=== PATIENT | female | born 1980 | race Hispanic/Latino ===

== ENCOUNTER 2021-03-10 07:32 | Observation (INO) | payer BC ==
[2021-03-05 11:30] LABS: BASOPHILS % (AUTO) 0.3 % (0.0-5.0); EOSINOPHILS % (AUTO) 0.5 % (0.0-8.0); HEMATOCRIT 42.6 % (36-48); LYMPHOCYTES % (AUTO) 22.1 % (21.0-51.0); MEAN CORPUSCULAR HEMOGLOBIN 29.1 pg (27.0-33.0); MEAN CORPUSCULAR HGB CONC 33.1 g/dL (32.0-36.0); NEUTROPHILS % (AUTO) 72.8 % (40.0-77.0); PLATELET COUNT (AUTO) 290 K/uL (130-400); RED BLOOD CELL COUNT(AUTO) 4.84 MIL/uL (4.00-5.50); RED CELL DISTRIBUTION WIDTH 12.8 % (11.0-15.5); WHITE BLOOD COUNT (AUTO) 8.7 K/uL (4.8-10.8)
[2021-03-05 11:43] LABS: POTASSIUM 3.6 mmol/L (3.5-5.1)
[2021-03-07 10:23] VITALS: BP 156/76
[2021-03-10] VITALS (22 sets, daily range): BP systolic 105–148; BP diastolic 51–75
[~2021-03-10] VITALS: Ht 162.6 cm; Wt 109.8 kg
[~2021-03-10 07:32] MED LIST: AMLO-257 PO; ETON1VAG VG; FISH1CAP50 PO; METF-446 PO; MULT-1367 PO; SEMA1PEN3 SQ
[2021-03-10] MEDS ORDERED: SODIUM CHLORIDE 0.9% 1000ML 1,000 ML IV ONE (07:54)
[2021-03-10] MEDS ORDERED: DEXAMETHASONE SOD PHOSPHATE 10MG/ML 1ML VIAL ONE (10:12)
[2021-03-10] MEDS ORDERED: SUCCINYLCHOLINE 200MG/10ML SYR ONE (10:12)
[2021-03-10] MEDS ORDERED: ROCURONIUM 10MG/1ML SYR 10 MG/ML ML ONE ×2 (10:12→10:50)
[2021-03-10] MEDS ORDERED: MIDAZOLAM HCL 1 MG/ML 2ML VIAL ONE (10:12)
[2021-03-10] MEDS ORDERED: LIDOCAINE PF 100MG/5ML (2%) SYRINGE 5ML ONE (10:12)
[2021-03-10] MEDS ORDERED: ONDANSETRON HCL 4 MG/2 ML VIAL ONE ×2 (10:12→12:48)
[2021-03-10] MEDS ORDERED: PROPOFOL 10 MG/ML 20ML VIAL IV ONE (10:12)
[2021-03-10] MEDS ORDERED: GLYCOPYRROLATE 1 MG/5 ML SYRINGE ONE (10:12)
[2021-03-10] MEDS ORDERED: NEOSTIGMINE 5MG/5ML SYR IV ONE (10:12)
[2021-03-10] MEDS ORDERED: FENTANYL CITRATE PF 50 MCG/1 ML 2ML VIAL ONE ×4 (10:13→11:51)
[2021-03-10] MEDS ORDERED: MEPERIDINE-PF 25 MG/ML SYG ONE ×2 (10:13→12:37)
[2021-03-10] MEDS ORDERED: VASOPRESSIN 20 UNITS/ML 1ML VIAL ONE (10:35)
[2021-03-10] MEDS ORDERED: CEFAZOLIN SODIUM 1 GM VIAL ONE ×2 (10:45→10:46)
[2021-03-10] MEDS ORDERED: ESTROGENS,CONJUGATED 0.625 MG/GM 42.5 GM VAG CRM VG ONE (12:21)
[2021-03-10] MEDS ORDERED: METOCLOPRAMIDE 10 MG/2 ML VIAL ONE (12:48)
[2021-03-10] MEDS ORDERED: ONDANSETRON HCL 4 MG/2 ML VIAL IVP PRN (14:00)
[2021-03-10] MEDS ORDERED: MEPERIDINE-PF 75 MG/ML SYG IM PRN (14:00)
[2021-03-10] MEDS ORDERED: BISACODYL 10 MG SUPP.RECT RC PRN (14:00)
[2021-03-10] MEDS ORDERED: PROMETHAZINE HCL 25 MG/ML 1ML AMPULE IM PRN ×2 (14:00)
[2021-03-10] MEDS: LACTATED RINGERS 1000ML 1,000 ML IV SCH ×2 (14:12→22:42)
[2021-03-10] MEDS: INSULIN HUMULIN R 100 UNIT/ML 3ML SQ SCH ×2 (17:19→21:19)
[2021-03-10] MEDS: ACETAMINOPHEN-CODEINE 300/30MG TAB PO PRN (19:48)
[2021-03-10] MEDS: DOCUSATE SODIUM 100 MG CAP PO PRN (21:21)
[2021-03-10] MEDS: SIMETHICONE 80 MG TAB.CHEW PO PRN (21:21)
[2021-03-11 04:06] VITALS: BP 121/59
[2021-03-11] MEDS: LACTATED RINGERS 1000ML 1,000 ML IV SCH (06:53)
[2021-03-11] MEDS: INSULIN HUMULIN R 100 UNIT/ML 3ML SQ SCH ×2 (06:56→12:09)
[2021-03-11 07:17] VITALS: BP 134/72
[2021-03-11 07:32] LABS: HEMATOCRIT 35.4 % (36-48); MEAN CORPUSCULAR HEMOGLOBIN 28.9 pg (27.0-33.0); MEAN CORPUSCULAR HGB CONC 33.6 g/dL (32.0-36.0); MEAN CORPUSCULAR VOLUME 85.9 fL (79-99); RED BLOOD CELL COUNT(AUTO) 4.12 MIL/uL (4.00-5.50); RED CELL DISTRIBUTION WIDTH 12.4 % (11.0-15.5); WHITE BLOOD COUNT (AUTO) 12.1 K/uL (4.8-10.8)
[2021-03-11] MEDS: SIMETHICONE 80 MG TAB.CHEW PO PRN (08:38)
[2021-03-11] MEDS: DOCUSATE SODIUM 100 MG CAP PO PRN (08:38)
[2021-03-11] MEDS: ACETAMINOPHEN-CODEINE 300/30MG TAB PO PRN (08:39)
[2021-03-11] MEDS ORDERED: AMLODIPINE BESYLATE 5 MG TAB PO SCH (09:00)
[2021-03-11 11:29] VITALS: BP 121/67
[2021-03-11] MEDS ORDERED: IBUPROFEN 800 MG TAB PO SCH ×2 (12:00→14:00)
[2021-03-11 15:44] VITALS: BP 128/68
[2021-03-11] MEDS ORDERED: METFORMIN HCL 500 MG TABLET PO SCH (17:00)
== END 2021-03-11 16:45 | disposition home or self-care (01) ==
LOC: DAH 07:32 → WSH 07:33 → DAH 23:38
PROVIDERS: ADMIT Specialist; ATTEND Specialist
DX: N81.89 Other female genital prolapse (principal); Z20.822 Contact with and (suspected) exposure to COVID-19; N94.10 Unspecified dyspareunia; N39.3 Stress incontinence (female) (male); I10 Essential (primary) hypertension; E11.9 Type 2 diabetes mellitus without complications; Z79.84 Long term (current) use of oral hypoglycemic drugs; Z79.899 Other long term (current) drug therapy; Z88.8 Allergy status to other drugs, medicaments and biological substances
CPT/HCPCS: 36415 ×3; 57240; 58260; 80048; 82948 ×6; 84703; 85025; 85027; 86850 ×2; 86900 ×2; 86901 ×2; 96361 ×2; 96372 ×2; 96374; A4215; A4216; A4221; A4222; A4223 ×3; A4344; A4351; A4510; A4600; A4606; A4663; A4930 ×2; A6260; C1769; C9803; G0378 ×17; J0330; J0690 ×2; J1100; J1815 ×4; J2001; J2175 ×3; J2250; J2405 ×2; J2550; J2704; J2710; J2765; J3010 ×4; J3490 ×2; J7030 ×2; J7120; U0003

== ENCOUNTER 2021-05-05 06:34 | Day surgery (SDC) | payer BC ==
[2021-05-01 10:33] LABS: BASOPHILS % (AUTO) 0.3 % (0.0-5.0); EOSINOPHILS % (AUTO) 1.9 % (0.0-8.0); HEMATOCRIT 42.4 % (36-48); LYMPHOCYTES % (AUTO) 25.6 % (21.0-51.0); MEAN CORPUSCULAR HEMOGLOBIN 28.4 pg (27.0-33.0); MEAN CORPUSCULAR HGB CONC 31.8 g/dL (32.0-36.0); MEAN CORPUSCULAR VOLUME 89.1 fL (79-99); MONOCYTES % (AUTO) 4.7 % (3.0-13.0); NEUTROPHILS % (AUTO) 67.2 % (40.0-77.0); PLATELET COUNT (AUTO) 287 K/uL (130-400); RED BLOOD CELL COUNT(AUTO) 4.76 MIL/uL (4.00-5.50); RED CELL DISTRIBUTION WIDTH 12.6 % (11.0-15.5); WHITE BLOOD COUNT (AUTO) 7.5 K/uL (4.8-10.8)
[2021-05-01 11:11] LABS: CREATININE 0.9 mg/dL (0.5-1.5)
[2021-05-01 11:30] LABS: POTASSIUM 3.9 mmol/L (3.5-5.1)
[2021-05-02 09:59] VITALS: BP 141/76
[2021-05-05] VITALS (17 sets, daily range): BP systolic 113–160; BP diastolic 70–89
[~2021-05-05] VITALS: Ht 166.4 cm; Wt 108.6 kg
[~2021-05-05 06:34] MED LIST changes: -ETON1VAG VG; +VITA1CAP85 PO
[2021-05-05] MEDS ORDERED: 0.9%NACL 1000ML 1,000 ML IV ONE (07:13)
[2021-05-05] MEDS: CEFAZOLIN SODIUM 1 GM VIAL ONE ×2 (08:01→09:28)
[2021-05-05] MEDS ORDERED: SUCCINYLCHOLINE CHLORIDE 20 MG/ML 10 ML VIAL ONE (08:59)
[2021-05-05] MEDS ORDERED: PROPOFOL 10 MG/ML 20ML VIAL IV ONE (08:59)
[2021-05-05] MEDS ORDERED: LIDOCAINE HCL-MPF 1% 5ML AMP IJ ONE (08:59)
[2021-05-05] MEDS ORDERED: ROCURONIUM 10MG/1ML SYR 10 MG/ML ML ONE (09:00)
[2021-05-05] MEDS ORDERED: FENTANYL CITRATE PF 50 MCG/1 ML 2ML VIAL ONE (09:00)
[2021-05-05] MEDS ORDERED: MIDAZOLAM HCL 1 MG/ML 2ML VIAL ONE (09:00)
[2021-05-05] MEDS ORDERED: GLYCOPYRROLATE 1 MG/5 ML SYRINGE ONE (10:12)
[2021-05-05] MEDS ORDERED: NEOSTIGMINE 5MG/5ML SYR IV ONE (10:13)
[2021-05-05] MEDS ORDERED: ONDANSETRON 4MG INJ ONE ×2 (10:21→10:46)
[2021-05-05] MEDS ORDERED: ACET1TAB25 PO (10:22)
[2021-05-05] MEDS ORDERED: CEPH500B PO (10:22)
[2021-05-05] MEDS ORDERED: MEPERIDINE-PF 25 MG/ML SYG ONE ×2 (10:39→10:54)
[2021-05-05] MEDS ORDERED: METOCLOPRAMIDE 10 MG/2 ML VIAL ONE (10:46)
== END 2021-05-05 12:05 | disposition home or self-care (01) ==
LOC: DAH 06:34
PROVIDERS: ATTEND Orthopaedic Surgery
DX: M67.51 Plica syndrome, right knee (principal); M17.11 Unilateral primary osteoarthritis, right knee; Z20.822 Contact with and (suspected) exposure to COVID-19; I10 Essential (primary) hypertension; E11.9 Type 2 diabetes mellitus without complications; E66.9 Obesity, unspecified; Z83.3 Family history of diabetes mellitus; Z82.49 Family history of ischemic heart disease and other diseases of the circulatory system; Z90.710 Acquired absence of both cervix and uterus; Z79.899 Other long term (current) drug therapy; Z98.890 Other specified postprocedural states
CPT/HCPCS: 29877; 36415; 80048; 82948 ×2; 85025; 87635; A4215; A4221; A4222; A4223; A4606; A4649 ×2; A4663; A4930; A5120; A6223; C9803; J0330; J0690; J2175 ×2; J2250; J2405 ×2; J2704; J2710; J2765; J3010; J3490 ×2; J7030; J7120

== ENCOUNTER 2021-10-24 19:09 | Emergency (ER) | payer BC ==
[~2021-10-24] VITALS: Ht 165.1 cm; Wt 111.1 kg
[~2021-10-24 19:09] MED LIST changes: +ACET1TAB25 PO; +CEPH500B PO
[2021-10-24 19:57] LABS: BASOPHILS % (AUTO) 0.3 % (0.0-5.0); EOSINOPHILS % (AUTO) 1.5 % (0.0-8.0); HEMATOCRIT 43.2 % (36-48); LYMPHOCYTES % (AUTO) 15.2 % (21.0-51.0); MEAN CORPUSCULAR HEMOGLOBIN 27.9 pg (27.0-33.0); MEAN CORPUSCULAR HGB CONC 32.4 g/dL (32.0-36.0); MEAN CORPUSCULAR VOLUME 86.1 fL (79-99); MONOCYTES % (AUTO) 4.9 % (3.0-13.0); NEUTROPHILS % (AUTO) 77.9 % (40.0-77.0); PLATELET COUNT (AUTO) 305 K/uL (130-400); RED BLOOD CELL COUNT(AUTO) 5.02 MIL/uL (4.00-5.50); RED CELL DISTRIBUTION WIDTH 13.2 % (11.0-15.5); WHITE BLOOD COUNT (AUTO) 10.5 K/uL (4.8-10.8)
[2021-10-24 20:00] LABS: APPEARANCE,URINE Clear (CLEAR); BILIRUBIN,URINE Negative (NEGATIVE); COLOR,URINE Yellow (YELLOW); GLUCOSE, URINE (UA) Negative (NEGATIVE); KETONES,URINE Negative (NEGATIVE); LEUKOCYTE ESTERASE ,URINE Negative (NEGATIVE); NITRATE,URINE Negative (NEGATIVE); OCCULT BLOOD,URINE Negative (NEGATIVE); PH,URINE 6.5 (5.0-8.0); PROTEIN,URINE Negative (NEGATIVE); UROBILINOGEN,URINE 0.2 mg/dL (0.2-1.0)
[2021-10-24] MEDS ORDERED: ONDANSETRON 4MG TABLET PO ONE (20:00)
[2021-10-24] MEDS ORDERED: HYOSCYAMINE SULFATE 0.125 MG TAB.SUBL SL ONE (20:00)
[2021-10-24 20:02] LABS: HCG,QUAL RESULT NEGATIVE (NEGATIVE)
[2021-10-24 20:24] LABS: CREATININE 0.9 mg/dL (0.5-1.5); POTASSIUM 4.1 mmol/L (3.5-5.1)
[2021-10-24 20:28] LABS: ALBUMIN 3.7 g/dL (3.5-5.0); BILIRUBIN,TOTAL 0.7 mg/dL (0.2-1.0); TOTAL PROTEIN, SERUM 8.3 g/dL (6.0-8.3)
[2021-10-24] MEDS ORDERED: ONDA4TAB10 PO (20:52)
[2021-10-24 21:13] VITALS: BP 139/72
== END 2021-10-24 21:51 | disposition home or self-care (01) ==
LOC: EDH 19:09
DX: R11.2 Nausea with vomiting, unspecified (principal); R19.7 Diarrhea, unspecified; R10.12 Left upper quadrant pain; E11.9 Type 2 diabetes mellitus without complications; I10 Essential (primary) hypertension; K21.9 Gastro-esophageal reflux disease without esophagitis; Z90.710 Acquired absence of both cervix and uterus; Z98.890 Other specified postprocedural states; Z79.899 Other long term (current) drug therapy; Z79.84 Long term (current) use of oral hypoglycemic drugs; Z88.8 Allergy status to other drugs, medicaments and biological substances
CPT/HCPCS: 36415; 80053; 81003; 81025; 83690; 85025; 99283; Q0162

== ENCOUNTER → 2022-09-09 | Outpatient (CLI) | payer SELFPAY ==
[~2022-09-09] MED LIST changes: +ACET-2079 PO; -ACET1TAB25 PO; +ONDA4TAB10 PO
== END | disposition home or self-care (01) ==
LOC: LAB 13:36
PROVIDERS: ATTEND Family Medicine
DX: R05.9 Cough, unspecified (principal)
CPT/HCPCS: 87804

== ENCOUNTER → 2022-12-09 | Outpatient (CLI) | payer OTHER ==
[2022-12-09 11:53] LABS: EOSINOPHILS % (AUTO) 1.6 % (0.0-8.0); HEMATOCRIT 42.8 % (36-48); LYMPHOCYTES % (AUTO) 28.2 % (21.0-51.0); MEAN CORPUSCULAR HEMOGLOBIN 28.5 pg (27.0-33.0); MEAN CORPUSCULAR HGB CONC 33.2 g/dL (32.0-36.0); MEAN CORPUSCULAR VOLUME 85.8 fL (79-99); MONOCYTES % (AUTO) 6.8 % (3.0-13.0); PLATELET COUNT (AUTO) 255 K/uL (130-400); RED BLOOD CELL COUNT(AUTO) 4.99 MIL/uL (4.00-5.50); RED CELL DISTRIBUTION WIDTH 12.5 % (11.0-15.5); WHITE BLOOD COUNT (AUTO) 6.8 K/uL (4.8-10.8)
[2022-12-09 12:11] LABS: HEMOGLOBIN A1C 10.4 % (4.0-6.0)
[2022-12-09 12:21] LABS: ALBUMIN 3.2 g/dL (3.5-5.0); CREATININE 0.9 mg/dL (0.5-1.5); POTASSIUM 3.9 mmol/L (3.5-5.1); THYROID STIMULATING HORMONE 2.59 uIU/mL (0.36-3.74); TOTAL PROTEIN, SERUM 7.5 g/dL (6.0-8.3)
== END | disposition home or self-care (01) ==
LOC: LAB 10:56
PROVIDERS: ATTEND Internal Medicine Nephrology
DX: Z13.29 Encounter for screening for other suspected endocrine disorder (principal); I10 Essential (primary) hypertension; E11.65 Type 2 diabetes mellitus with hyperglycemia; E78.1 Pure hyperglyceridemia; E55.9 Vitamin D deficiency, unspecified
CPT/HCPCS: 36415; 80053; 80061; 82670; 83001; 83002; 83036; 84443; 85025

== ENCOUNTER 2023-05-07 13:57 | Emergency (ER) | payer BC ==
[~2023-05-07] VITALS: Ht 165.1 cm; Wt 119.3 kg
[2023-05-07 15:50] LABS: HEMATOCRIT 41.1 % (36-48); MEAN CORPUSCULAR HEMOGLOBIN 28.5 pg (27.0-33.0); MEAN CORPUSCULAR HGB CONC 33.1 g/dL (32.0-36.0); MEAN CORPUSCULAR VOLUME 86.2 fL (79-99); RED BLOOD CELL COUNT(AUTO) 4.77 MIL/uL (4.00-5.50); RED CELL DISTRIBUTION WIDTH 12.9 % (11.0-15.5); WHITE BLOOD COUNT (AUTO) 9.7 K/uL (4.8-10.8)
[2023-05-07] MEDS ORDERED: MORPHINE 2 MG SYG IVP ONE (16:00)
[2023-05-07] MEDS ORDERED: FAMOTIDINE 20MG VIAL IV ONE (16:00)
[2023-05-07] MEDS ORDERED: KETOROLAC 30MG VIAL (30MG/ML) IVP ONE (16:00)
[2023-05-07 16:02] LABS: CREATININE 0.9 mg/dL (0.5-1.5); POTASSIUM 4.3 mmol/L (3.5-5.1)
[2023-05-07] MEDS ORDERED: CYCL10TA16 PO (17:29)
[2023-05-07] MEDS ORDERED: MELO-106 PO (17:29)
[2023-05-07] MEDS ORDERED: INSULIN HUMULIN R 100 UNIT/ML 3ML SQ ONE (17:30)
[2023-05-07 18:20] VITALS: BP 156/84
== END 2023-05-07 19:14 | disposition home or self-care (01) ==
LOC: EDH 13:57
DX: E11.9 Type 2 diabetes mellitus without complications (principal); M71.21 Synovial cyst of popliteal space [Baker], right knee; I10 Essential (primary) hypertension; Z79.84 Long term (current) use of oral hypoglycemic drugs
CPT/HCPCS: 99284; 96374; 93971; 96375; 80048; 85027; 85378; 82948; 36415; 96372; J1815; J3490; J2270; J1885